=== PATIENT | male | born 1945 | race African-American/Black ===

== ENCOUNTER → 2017-05-30 | Outpatient (CLI) | payer OTHER ==
--- NOTE | ~2017-05-30 | MR32 ---
[facility] A Service of [facility] & [facility] RADIOLOGY TEXT RESULTS PATIENT: OLIVER BURNS LOCATION: [facility] : 45 UNIT #: [id number] AGE: [address]: Arik Bullock MD SEX: M ORDER DR: [id number] [place] [id number] O MR#: [id number] Acc #: [id number] NAME: OLIVER BURNS. : 1945 SEX: M STUDY DATE/TIME: 05/30/2017 12:35 UNIT: [facility] ROOM: STUDY DESCRIPTION: MR Cervical Wo Contrast Attending Physician: Arik Bullock M.D. Referring Physician: Arik Bullock M.D. Ordering Physician: Arik Bullock M.D. Primary Care Physician: Mikey Briseno Jr., M.D. MRI CENTER REPORT This report is preliminary unless electronic signature is present. EXAM Cervical spine MRI without contrast, 05/30/2017 PROCEDURE Routine cervical spine MR without contrast COMPARISON None HISTORY Increasing neck pain with limited range of motion for 1 month. FINDINGS There is slight 2-3 anterolisthesis, and there are chronic degenerative marrow signal changes though there is no marrow infiltration or replacement. Cord signal is normal and the posterior fossa and its contents are normal. The paraspinous soft tissues are normal. At C2-3, disc and osteophyte complex causes canal stenosis with mild or [id number] left-sided cord compression. There is no abnormal cord signal and there is mild bilateral foraminal narrowing. At C3-4, there is a broad disc and osteophyte complex with canal stenosis and mild to moderate cord compression and moderate to severe right and severe left foraminal stenosis. There is no abnormal cord signal. At 4-5, there is canal stenosis and mild cord compression and moderate to severe bilateral foraminal stenosis. At 5-6, there is a left side predominant disc and osteophyte complex with mild left-sided cord compression and moderate bilateral foraminal stenosis. At 6-7, there is canal stenosis with ventral cord flattening but not [facility] A Service of [facility] & [facility] RADIOLOGY TEXT RESULTS PATIENT: OLIVER BURNS LOCATION: [facility] : 45 UNIT #: [id number] AGE: [address]: Arik Bullock MD SEX: M ORDER DR: definite cord compression. There is [id number] right and moderate left foraminal stenosis. At 7-1, there is mild canal narrowing without cord compression, and moderate bilateral foraminal stenosis. IMPRESSION Multilevel degenerative canal and foraminal narrowing. Multilevel degenerative cord compression without abnormal cord signal. Changes appear chronic throughout the cervical spine, see above for level by level details. Dictated by... Arik Valencia M.D. THIS IS AN ELECTRONICALLY VERIFIED REPORT Arik Valencia M.D. at 06/03/2017 4:08 PM BRIANA/cedric TD: 05/31/2017 16:21 JOB #: [id number] MRI CENTER REPORT Page 1 of 1
== END | disposition home or self-care (01) ==
LOC: SMRI 12:14
DX: M54.2 Cervicalgia (principal); M48.02 Spinal stenosis, cervical region; M99.81 Other biomechanical lesions of cervical region; M25.78 Osteophyte, vertebrae; M50.31 Other cervical disc degeneration, high cervical region; M50.322 Other cervical disc degeneration at C5-C6 level; G95.20 Unspecified cord compression
CPT/HCPCS: 72141